=== PATIENT | female | born 1960 | race African-American/Black ===

== ENCOUNTER 2016-06-28 01:50 | Emergency (ER) | payer OTHER ==
[~2016-06-28] VITALS: Ht 170.2 cm; Wt 59.4 kg
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
[2016-06-28] MEDS ORDERED: LIDOCAINE 2%/EPI 1:100,000 20 ML VIAL. IJ ONE (03:00)
[2016-06-28] MEDS ORDERED: DIPHTH,PERTUSS(ACELL),TET TOX 0.5 ML DISP.SYRIN. VAX IM ONE (03:00)
[2016-06-28] MEDS ORDERED: ACETAMINOPHEN 325 MG TABLET. PO ONE (03:00)
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
[2016-06-28] MEDS ORDERED: IBUP-1060 PO (03:43)
[2016-06-28 03:55] VITALS: BP 108/69
== END 2016-06-28 03:57 | disposition home or self-care (01) ==
LOC: EEVIPCON 01:50 → ER 01:50
DX: S01.81XA Laceration without foreign body of other part of head, initial encounter (principal); S09.90XA Unspecified injury of head, initial encounter; Y08.89XA Assault by other specified means, initial encounter; Y93.89 Activity, other specified; Y92.89 Other specified places as the place of occurrence of the external cause; Y99.8 Other external cause status
CPT/HCPCS: 12013; 70486; 90471; 90715; 99284; J3490

== ENCOUNTER 2017-07-06 09:59 | Emergency (ER) | payer OTHER ==
[2017-07-06] MEDS: IPRATRPIUM/ALBUTEROL 0.5/2.5MG 3 ML NEBU. NEB (10:42)
[2017-07-06] MEDS: predniSONE 20 MG TABLET PO (11:00)
[2017-07-06] MEDS: BENZONATATE 100 MG CAPSULE. PO (11:00)
== END 2017-07-06 11:34 | disposition home or self-care (01) ==
LOC: ER 09:59
DX: J20.9 Acute bronchitis, unspecified (principal); F17.200 Nicotine dependence, unspecified, uncomplicated; I10 Essential (primary) hypertension; J45.909 Unspecified asthma, uncomplicated
CPT/HCPCS: 71046; 94640; 99284-25; J7512; J7620

== ENCOUNTER 2019-04-06 12:52 | Emergency (ER) | payer SELFPAY ==
[~2019-04-06] VITALS: Ht 170.2 cm; Wt 54.4 kg
[~2019-04-06 12:52] MED LIST: BENZ100C PO; IBUP-1060 PO; PRED50TA PO; PROAIR RESPICL90 MCG IH
[2019-04-06 13:58] LABS: BILIRUBIN,URINE LARGE (NEG); CLARITY,URINE CLOUDY; COLOR,URINE ORANGE; NITRITE,URINE NEGATIVE (NEG); PH,URINE 5.5; PROTEIN,URINE 30 mg/dL (NEG-TRACE)
[2019-04-06 14:02] LABS: HYALINE CASTS, URINE MANY /HPF; SQUAMOUS EPITHELIAL CELL,UR MANY /LPF
[2019-04-06 14:03] LABS: BACTERIA,URINE MODERATE /HPF (0-FEW)
[2019-04-06 14:09] LABS: AMPHETAMINE/METHAMPHETAMINE NEG (NEG); BARBITURATES NEG (NEG); BENZODIAZEPINES NEG (NEG); CANNABINOIDS NEG (NEG); COCAINE NEG (NEG); METHADONE NEG (NEG); OPIATES NEG (NEG); PHENCYCLIDINE NEG (NEG)
--- NOTE | 2019-04-06 14:11 | RAD ---
CHEST PA LATERAL History: Shortness of air with exertion. Comparison: Two-view chest July 06, 2017. Findings: The cardiomediastinal silhouette is normal. Pulmonary vasculature is normal. The lungs are clear. No pleural effusion or pneumothorax is seen. There is no acute bone abnormality. IMPRESSION: No acute cardiopulmonary process. Electronically signed by: Gilmar Ramos MD (04/06/2019 2:09 PM) [id number]
[2019-04-06 14:13] LABS: BASO # 0.1 x10^3/uL (0.0-0.2); BASO % 1 % (0-3); EOS # 0.1 x10^3/uL (0.0-0.7); EOS % 1 % (0-3); HEMATOCRIT 32.7 % (36.0-47.0); HEMOGLOBIN 10.7 g/dL (12.0-15.5); LYMPH # 1.4 x10^3/uL (1.0-4.8); LYMPH % 21 % (24-48); MEAN CORPUSCULAR HEMOGLOBIN 31 pg (25-35); MEAN CORPUSCULAR HGB CONC 33 g/dL (31-37); MEAN CORPUSCULAR VOLUME 94 fL (79-100); MONO # 0.7 x10^3/uL (0.0-1.1); MONO % 10 % (0-9); NEUT # 4.6 x10^3/uL (1.8-7.7); NEUT % 67 % (31-73); PLATELET COUNT 236 x10^3/uL (140-400); RED BLOOD COUNT 3.49 x10^6/uL (3.50-5.40); RED CELL DISTRIBUTION WIDTH 14.8 % (11.5-14.5); WHITE BLOOD COUNT 6.8 x10^3/uL (4.0-11.0)
--- NOTE | 2019-04-06 14:16 | PHYS DOC ---
Past Medical History Past Medical History: Asthma, Hypertension Additional Past Medical Histor: NON-COMPLAINT. ALCOHOL ABUSE (BRANDON VALERIO APRN) Past Surgical History: Other Additional Past Surgical Histo: RIGHT LUMPECTOMY X2 (BRANDON VALERIO APRN) Alcohol Use: Heavy Additional Information: PT REPORTS SHE DRINKS DAILY, APPROXIMATELY 6 BEERS PER DAY. PT DENIES ANY ALCOHOL TODAY. Drug Use: None (BRANDON VALERIO APRN) Attending Signature I have participated in the care of this patient and I have reviewed and agree with all pertinent clinical information above including history, exam, and recommendations. (ANGELIA OSMAN MD) Adult General Chief Complaint Chief Complaint: SORE THROAT HPI HPI Patient is a 59 year old AA female who presents to the emergency department with reports of a sore throat for the last 3 weeks. Patient states her throat has been so sore that she has had problems eating and drinking. She denies any fever, diarrhea, or abdominal pain. Patient states that her throat hurts worse after she eats and sometimes when she lies down. She also reports nausea and vomiting with the pain. She states that she has lost 10 pounds and lost 3 weeks due to the pain and inability to eat. She has been using throat lozenges and [id number] throat sprays for discomfort. Currently she denies any pain unless she swallows, in which the pain increases to a 6 out of 10 on the pain scale and the patient describes the pain as burning. (BRANDON VALERIO APRN) Review of Systems Review of Systems Constitutional: Denies fever or chills [] Eyes: Denies change in visual acuity, redness, or eye pain [] HENT: Denies nasal congestion or ear pain; see history of present illness Respiratory: Denies cough, wheezing, or shortness of breath [] Cardiovascular: No additional information not addressed in HPI [] GI: Denies abdominal pain, or diarrhea; reports decreased appetite see history of present illness : Denies dysuria or hematuria [] Musculoskeletal: Denies back pain or joint pain [] Integument: Denies rash or skin lesions [] Neurologic: Denies headache, focal weakness or sensory changes [] Complete systems were reviewed and found to be within normal limits, except as documented in this note. (BRANDON VALERIO APRN) Allergies Allergies Allergies Coded Allergies Type Severity Reaction Last Updated Verified No Known Drug Allergies 06/28/16 No (ANGELIA OSMAN MD) Physical Exam Physical Exam Constitutional: Well developed, well nourished, no acute distress, non-toxic appearance. [] HENT: Normocephalic, atraumatic, bilateral external ears normal, oropharynx moist, no oral exudates, nose normal. [] Eyes: PERRLA, EOMI, conjunctiva normal, no discharge. [] Neck: Normal range of motion, no tenderness, supple, no stridor. [] Cardiovascular:Heart rate regular tachycardic rhythm, no murmur [] Lungs & Thorax: Bilateral breath sounds clear to auscultation [] Abdomen: Bowel sounds normal, soft, no tenderness, no masses, no pulsatile masses. [] Skin: Warm, dry, no erythema, no rash. [] Back: No tenderness Extremities: No cyanosis, no clubbing, ROM intact, no edema. [] Neurologic: Alert and oriented X 3, no focal deficits noted. [] Psychologic: Affect normal, judgement normal, mood normal. [] (BRANDON VALERIO APRN) Current Patient Data Vital Signs Vital Signs Date Time Temp Pulse Resp B/P (MAP) Pulse Ox O2 Delivery O2 Flow Rate FiO2 04/06/19 16:05 105 16 118/85 (96) 98 Room Air 04/06/19 13:19 98.4 98.4 (ANGELIA OSMAN MD) Lab Values Laboratory Tests Test 04/06/19 13:48 04/06/19 14:03 Urine Collection Type Unknown Urine Color [place] Urine Clarity Cloudy Urine pH 5.5 Urine Specific [place] 1.025 Urine Protein 30 mg/dL (NEG-TRACE) Urine Glucose (UA) Negative mg/dL (NEG) Urine Ketones (Stick) 40 mg/dL (NEG) Urine Blood Negative (NEG) Urine Nitrite Negative (NEG) Urine Bilirubin Large (NEG) Urine Urobilinogen Dipstick 2.0 mg/dL (0.2 mg/dL) Urine Leukocyte Esterase Moderate (NEG) Urine RBC 3-5 /HPF (0-2) Urine WBC 11-20 /HPF (0-4) Urine Squamous Epithelial Cells Many /LPF Urine Bacteria Moderate /HPF (0-FEW) Urine Hyaline Casts Many /HPF Urine Mucus Marked /LPF Urine Opiates Screen Neg (NEG) Urine Methadone Screen Neg (NEG) Urine Barbiturates Neg (NEG) Urine Phencyclidine Screen Neg (NEG) Urine Amphetamine/Methamphetamine Neg (NEG) Urine Benzodiazepines Screen Neg (NEG) Urine Cocaine Screen Neg (NEG) Urine Cannabinoids Screen Neg (NEG) Urine Ethyl Alcohol Neg (NEG) White Blood Count 6.8 x10^3/uL (4.0-11.0) Red Blood Count 3.49 x10^6/uL (3.50-5.40) L Hemoglobin 10.7 g/dL (12.0-15.5) L Hematocrit 32.7 % (36.0-47.0) L Mean Corpuscular Volume 94 fL (79-100) Mean Corpuscular Hemoglobin 31 pg (25-35) Mean Corpuscular Hemoglobin Concent 33 g/dL (31-37) Red Cell Distribution Width 14.8 % (11.5-14.5) H Platelet Count 236 x10^3/uL (140-400) Neutrophils (%) (Auto) 67 % (31-73) Lymphocytes (%) (Auto) 21 % (24-48) L Monocytes (%) (Auto) 10 % (0-9) H Eosinophils (%) (Auto) 1 % (0-3) Basophils (%) (Auto) 1 % (0-3) Neutrophils # (Auto) 4.6 x10^3/uL (1.8-7.7) Lymphocytes # (Auto) 1.4 x10^3/uL (1.0-4.8) Monocytes # (Auto) 0.7 x10^3/uL (0.0-1.1) Eosinophils # (Auto) 0.1 x10^3/uL (0.0-0.7) Basophils # (Auto) 0.1 x10^3/uL (0.0-0.2) Sodium Level 141 mmol/L (136-145) Potassium Level 3.5 mmol/L (3.5-5.1) Chloride Level 101 mmol/L (98-107) Carbon Dioxide Level 26 mmol/L (21-32) Anion Gap 14 (6-14) Blood Urea Nitrogen 15 mg/dL (7-20) Creatinine 0.7 mg/dL (0.6-1.0) Estimated GFR (Cockcroft-Gault) 104.4 BUN/Creatinine Ratio 21 (6-20) H Glucose Level 100 mg/dL (70-99) H Calcium Level 9.6 mg/dL (8.5-10.1) Total Bilirubin 1.1 mg/dL (0.2-1.0) H Aspartate Amino Transferase (AST) 40 U/L (15-37) H Alanine Aminotransferase (ALT) 22 U/L (14-59) Alkaline Phosphatase 84 U/L (46-116) Total Protein 7.8 g/dL (6.4-8.2) Albumin 3.4 g/dL (3.4-5.0) Albumin/Globulin Ratio 0.8 (1.0-1.7) L Lipase 65 U/L (73-393) L Ethyl Alcohol Level < 10 mg/dL (0-10) Laboratory Tests 04/06/19 14:03 Laboratory Tests 04/06/19 14:03 Microbiology 04/06/19 Urine Culture - Final, Complete 04/06/19 Urine Culture Result 1 ([place]) - Final, Complete (ANGELIA OSMAN MD) EKG EKG 1339- ST rate 117, no STEMI read by Dr. Osman[] (BRANDON VALERIO APRN) Radiology/Procedures Radiology/Procedures PROCEDURE: CHEST PA & LATERAL CHEST PA LATERAL History: Shortness of air with exertion. Comparison: Two-view chest July 06, 2017. Findings: The cardiomediastinal silhouette is normal. Pulmonary vasculature is normal. The lungs are clear. No pleural effusion or pneumothorax is seen. There is no acute bone abnormality. IMPRESSION: No acute cardiopulmonary process. [] (BRANDON VALERIO APRN) Course & Med Decision Making Course & Med Decision Making Pertinent Labs and Imaging studies reviewed. (See chart for details) dx: gerd, N/V CBC: Hgb 10.7, Hct 32.7; CMP Bun/Magnetic Doctor ratio 21, glucose 100. total bili 1.1, AST 40, lipase normal UA likely contaminated pt asymptomatic CXR unremarkable EKG no acute changes Pt was able to tolerate PO foods in the ER. (BRANDON VALERIO APRN) Dragon Disclaimer Dragon Disclaimer This electronic medical record was generated, in whole or in part, using a voice recognition dictation system. (BRANDON VALERIO APRN) Departure Departure Impression: Primary Impression: GERD (gastroesophageal reflux disease) Additional Impression: N&V (nausea and vomiting) Disposition: 01 HOME, SELF-CARE Condition: STABLE Referrals: NO PCP (PCP) Patient Instructions: Diet for Gastroesophageal Reflux Disease, Adult, [id number], Gastroesophageal Reflux Disease, Adult, [id number] Additional Instructions: Fill the prescription and use as directed. Follow the diet instructions provided. Follow up with Dr. Rosas for further evaluation of your abdominal pain. Return to the ER if symptoms worsen. Scripts Omeprazole (OMEPRAZOLE) 20 Mg Capsule.dr 1 CAP PO BID for 30 Days, #60 CAP 0 Refills Prov: BRANDON VALERIO APRN 04/06/19 Problem Qualifiers Primary Impression: GERD (gastroesophageal reflux disease) Esophagitis presence: esophagitis presence not specified Qualified Codes: K21.9 - Gastro-esophageal reflux disease without esophagitis Additional Impression: N&V (nausea and vomiting) Vomiting type: unspecified Vomiting Intractability: unspecified Qualified Codes: R11.2 - Nausea with vomiting, unspecified BRANDON VALERIO APRN Apr 06, 2019 14:16 ANGELIA OSMAN MD Apr 12, 2019 18:22
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
[2019-04-06 14:23] LABS: CALCIUM 9.6 mg/dL (8.5-10.1); CREATININE 0.7 mg/dL (0.6-1.0); GFR 104.4; POTASSIUM 3.5 mmol/L (3.5-5.1)
[2019-04-06 14:30] LABS: ALBUMIN 3.4 g/dL (3.4-5.0); ALBUMIN/GLOBULIN RATIO 0.8 (1.0-1.7); TOTAL BILIRUBIN 1.1 mg/dL (0.2-1.0); TOTAL PROTEIN 7.8 g/dL (6.4-8.2)
[2019-04-06] MEDS ORDERED: OMEP20CA10 PO (15:54)
[2019-04-06 16:05] VITALS: BP 118/85
== END 2019-04-06 16:05 | disposition home or self-care (01) ==
LOC: ER 12:52
DX: K21.9 Gastro-esophageal reflux disease without esophagitis (principal); I10 Essential (primary) hypertension; J45.909 Unspecified asthma, uncomplicated; F10.20 Alcohol dependence, uncomplicated; Y90.9 Presence of alcohol in blood, level not specified
CPT/HCPCS: 36415; 71046; 80053; 80307; 81001; 83690; 85025; 87086; 93005; 99285; G0480